=== PATIENT | female | born 1980 | race Caucasian/White ===

== ENCOUNTER 2024-04-23 13:22 | Outpatient (OUT) | payer BC, SELFPAY ==
--- NOTE | 2024-04-23 13:31 | MM_ITS ---
Patient Name: JULES BOSTON MR#: [id number] : 1980 Exam Date: 04/23/2024 Ordering Doctor: DEBRA Zarco CNP RADIOLOGY REPORT PROCEDURE: MM TOMOSYNTHESIS SCREENING BI COMPARISON: None. INDICATIONS: Screening Calculator Name NCI Breast Cancer Risk Assessment Tool 5 Year Breast Cancer Risk 0.70% Lifetime Breast Cancer Risk 8.70% Personal Breast Cancer No Personal Ovarian Cancer No Treatments None Family Cancers Father with lung cancer at age 66. LOCATION: [facility] BREAST COMPOSITION: There are scattered areas of fibroglandular density. FINDINGS: DIAGNOSTIC CATEGORY 2--BENIGN FINDING: Scattered benign-appearing calcifications are present. Scattered benign-appearing lymph nodes are present. RIGHT BREAST: No significant suspicious finding. LEFT BREAST: No significant suspicious finding. RECOMMENDATIONS: ROUTINE MAMMOGRAM AND CLINICAL EVALUATION IN 12 MONTHS. PLEASE NOTE: A NORMAL MAMMOGRAM DOES NOT EXCLUDE THE POSSIBILITY OF BREAST CANCER. A CLINICALLY SUSPICIOUS PALPABLE LUMP SHOULD BE BIOPSIED. Dictated by: Ephraim Hale MD on 04/26/2024 at 09:20 Approved by: Ephraim Hale MD on 04/26/2024 at 09:21
== END 2024-04-23 13:23 | disposition home or self-care (01) ==
LOC: MAMMO 13:24
PROVIDERS: PCP Nurse Practitioner; Visit Provider Nurse Practitioner
DX: Z12.31 Encounter for screening mammogram for malignant neoplasm of breast (principal); Z80.1 Family history of malignant neoplasm of trachea, bronchus and lung
CPT/HCPCS: 77063; 77067

== ENCOUNTER 2024-05-01 07:24 | Outpatient (OUT) | payer BC, SELFPAY ==
--- OUTSIDE RECORDS SUMMARY | 2024-05-01 07:28 | XMS_ITS | CCD ---
Author Organization [facility] Care Team Providers Care Aluminizer Name Role Phone ALETHEA CRAWFORD Attending Unavailable ALETHEA CRAWFORD Referring Unavailable HIRO IRAHETA Attending Unavailable Allergies Allergy Classification Reported Allergen(s) Allergy Type Date of Onset Reaction(s) Facility (1 source) HYDROmorphone; Translations: [HYDROMORPHONE] Drug Allergy 11-10-[address] [facility] Repository Problems Problem Classification Problem Date Documented Da te Episodic/Chronic Other non-traumatic joint disorders (2 sources) Pain in right knee; Translations: [Pain in right knee] Onset: 11-10-2023 Episodic Residual codes; unclassified (2 sources) Presence of functional implant, unspecified; Translations: [Presence of functional implant, unspecified] Onset: 11-10-2023 Chronic Results Test Name Value Interpretation Reference Range Facil ity Office Visiton 11-10-2023 Follow-up visit [id number] Vita Newsome 1980 F Date Provider Department Center 11/10/2023 ALETHEA SANTIAGO MP ORTH[facility] MPORTHO No family history on file Level of Service:89170 [place] OFFICE/OUTPATIENT ESTABLISHED MOD MDM 30 MIN () Reason for Visit and Comments: Pain [136] Normal [facility] Encounters Encounter Date Encounter Type Care Provider Facility Start: 04-12-2024 End: 04-12-2024 ambulatory HIRO IRAHETA Not Available Start: 11-10-2023 End: 11-11-2023 ambulatory ALETHEA CRAWFORD [facility] Start: 11-10-2023 ambulatory ALETHEA CRAWFORD [facility] Payers Date Payer Category Payer Unknown [id number] 1980 Unknown [id number] Progress note 11-10-2023 Note Date & Type Note Facility 11-10-2023 Note -------- Attestation signed by Alethea Crawford MD at 11/10/2023 3:36 PM I personally saw and examined the patient on the same date of service as resident/fellow . I discussed the findings and therapeutic plan with the resident/fellow . I agree with the documentation, except for any edits/updates below. Teaching Physician's Revisions: No revisions -------- Orthopedic Surgery Subjective Pain of the Right Leg 11/10/23 Vita Newsome is a 43 y.o. female presenting for evaluation of right lower extremity. Had a gudelia placed into the right tibia in 2007. Fallen in August and Has been having pain and burning around the knee with a bump. Has been having more ankle pain. She can no longer kneel on her knee. She otherwise has not had any problems after her surgery. Review of Systems unremarkable aside from what is noted in HPI Joint pain Patient History Past Surgical History: Procedure Laterality Date LEG SURGERY Right TIB/FIB-RODS AND PINS No past medical history on file. Objective General: There is no height or weight on file to calculate BMI. No acute distress, comfortable Respiratory: Unlabored breathing with normal rate, no cough Cardiovascular: Warm well perfused extremities Psych: Appropriate mood behavior Right Knee: Inspection- no ecchymosis, no edema, no effusion, Scars from previous surgery are all well-healed Tender to palpation over prominent lump of the anterior right knee/Tibial tubercle Nontender to palpation over prominent screws distally Knee ROM: Extension- 0??? Flexion- 110??? Strength: Knee Flexion 5/5 Knee Extension 5/5 Ankle Dorsiflexion 5/5 Ankle Plantarflexion 5/5 Sensation: intact over superficial peroneal, deep peroneal and tibial nerve distributions Stability: Stable to varus and valgus stress Stable to anterior and posterior thrust Gait: heel toe pattern, normal Knee Special Tests: Not Applicable Imaging personally reviewed: X-rays of the right tibia were obtained today demonstrating Appropriately healed tibial and proximal fibula fracture without any displacement or nonunion. Hardware appears to be in decent position without any backing out. Of note she does have a prominent tibial tubercle Assessment/Plan Vita Newsome is a 43 y.o. year old female withRight knee pain and a history of tibial nail performed in 2007 We discussed her clinical and radiographic findings today. We will have her follow-up with Dr. Donis to discuss hardware removal versus excision of that small prominent bone that has been aggravating her. Follow up prn. Marylou Donato MD By using the attestations below, the signing clinician agrees that I have read and verify that the documentation has been personally reviewed by me and ensure that the documentation accurately reflects the encounter. GC: I personally saw this patient on the day of the encounter, performed the mcintyre portion(s) of the service and participated in the management and confirm the resident's documentation. Please note there may be an additional personal documentation from me. [facility] Summary Purpose Family History No Family History Records FoundNo Family History Records Found Advance Directives No Advanced Directives Records FoundNo Advanced Directives Records Found Additional Source Comments INFORMATION SOURCE (unrecogn ized section and content) DATE CREATED AUTHOR 11/13/2023 [facility] DATE CREATED AUTHOR AUTHOR'S ORGANIZ ATION 04/14/2024 [facility] EPIC FOR RECORDS PERTAINING TO PATIENTS WHO ARE OR HAVE BEEN ENROLLED IN A CHEMICAL DEPENDENCY/SUBSTANCEABUSE PROGRAM, SOME INFORMATION MAY BE OMITTED. This clinical summary was aggregated from multiple sources. Caution should be exercised in using it in the provision of clinical care. This summary normalizes information from multiple sources, and as a consequence, information in this document may materially change the coding, format and clinical context of patient data. In addition, data may be omitted in some cases. CLINICAL DECISIONS SHOULD BE BASED ON THE PRIMARY CLINICAL RECORDS. [employer] provides no warranty or guarantee of the accuracy or completeness of information in this document.
[2024-05-01 07:46] LABS: Basophils Percent Auto 0.4 % (0.2-2.0); Eosinophils Absolute Auto 0.1 10^3/uL (0.0-0.7); Hematocrit 41.1 % (36.0-48.0); Hemoglobin 13.5 g/dL (12.0-16.0); Immature Granulocytes Abs Auto 0.02 10^3/uL (0.00-0.03); Immature Granulocytes Pct Auto 0.3 % (0.0-0.5); Lymphocytes Absolute Auto 1.9 10^3/uL (1.2-3.8); Lymphocytes Percent Auto 26.2 % (20.5-60.0); Mean Corpuscular HGB Conc 32.8 g/dL (29.9-35.2); Mean Corpuscular Hemoglobin 30.1 pg (26.7-34.0); Mean Corpuscular Volume 91.5 fL (81.0-99.0); Mean Platelet Volume 11.9 fL (9.5-13.5); Monocytes Absolute Auto 0.4 10^3/uL (0.3-0.8); Monocytes Percent Auto 5.3 % (1.7-12.0); Neutrophils Absolute Auto 4.7 10^3/uL (1.4-6.5); Neutrophils Percent Auto 65.8 % (43.0-75.0); Platelet Count 243 10^3/uL (150-450); Red Blood Count 4.49 10^6/uL (4.20-5.40); Red Cell Distribution Width 13.2 % (11.0-15.0); White Blood Count 7.1 10^3/uL (4.0-11.0)
[2024-05-01 07:47] LABS: Bilirubin Urine NEGATIVE (NEGATIVE); Blood Urine NEGATIVE (NEGATIVE); Clarity Urine CLEAR (CLEAR); Color Urine LT. YELLOW (YELLOW); Glucose Urine UA NEGATIVE (NEGATIVE); Ketones Urine NEGATIVE (NEGATIVE); Leukocyte Esterase Urine NEGATIVE (NEGATIVE); Nitrite Urine NEGATIVE (NEGATIVE); Protein Urine NEGATIVE (NEG/TRACE); Specific Gravity Urine 1.025 (1.005-1.025); Urobilinogen Urine 0.2 EU/dL (0.2-1.0)
[2024-05-01 07:52] LABS: Urine Microscopic Indicated NO
[2024-05-01 08:15] LABS: Alanine Aminotransferase 17 U/L (14-59); Albumin Globulin Ratio 1.1; Albumin Level 3.9 g/dL (3.4-5.0); Alkaline Phosphatase 82 U/L (46-116); Anion Gap 12.6; Aspartate Amino Transferase 13 U/L (15-37); BUN Creatinine Ratio 12.2; Bilirubin Total 0.5 mg/dL (0.2-1.0); Carbon Dioxide 25.5 mmol/L (21.0-32.0); Chloride 105 mmol/L (98-107); Chol HDL Ratio 2.9; Cholesterol 180 mg/dL (<=200); Estimated GFR (African America >60 (>=60); Estimated GFR (Non-African Ame >60 (>=60); Globulin 3.5 g/dL; Glucose 105 mg/dL (74-106); HDL Cholesterol 62 mg/dL (40-60); Potassium 4.1 mmol/L (3.5-5.1); Sodium 139 mmol/L (136-145); Thyroid Stimulating Hormone 1.534 uIU/mL (0.358-3.740); Total Protein 7.4 g/dL (6.4-8.2); Triglycerides 106 mg/dL (<=150); VLDL CHOLESTEROL 21.2 mg/dL
== END 2024-05-01 07:25 | disposition home or self-care (01) ==
PROVIDERS: PCP Nurse Practitioner; Visit Provider Nurse Practitioner
DX: Z00.00 Encounter for general adult medical examination without abnormal findings (principal)
CPT/HCPCS: 36415; 80053; 80061; 81003; 84443; 85025